=== PATIENT | female | born 1965 | race Caucasian/White ===

== ENCOUNTER → 2023-11-03 | Outpatient (CLI) | payer OTHER ==
--- NOTE | 2023-11-03 14:56 | US ---
EXAMINATION TYPE: US transvaginal DATE OF EXAM: 11/03/2023 COMPARISON: NONE CLINICAL INDICATION: Female, 58 years old with history of N92.6 IRREGULAR MENSTRUATION, UNSPECIFIED; Irregular menses. Hx Csection. TECHNIQUE: Transvaginal (TV). Date of LMP: 09/28/2023, EXAM MEASUREMENTS: Uterus: 9.1 x 5.3 x 5.2 cm Endometrial Stripe: 1.8 cm Right Ovary: 2.9 x 2.2 x 2.1 cm Left Ovary: 3.2 x2.4 x 2.2 cm 1. Uterus: Anteverted Heterogenous in appearance 2. Endometrium: Difficult to accurately visualized. Appears thickened and heterogenous. Possible echogenic heterogenous lesion = 1.4 x 1.4 cm. 3. Right Ovary: hypoechoic lesion - 2.0 x 1.8 x 1.8 cm. 4. Left Ovary: hypoechoic lesion = 2.0 x 2.0 x 2.1 cm 5. Bilateral Adnexa: wnl 6. Posterior cul-de-sac: no free fluid IMPRESSION: Endometrium poorly visualized. Possible lesion identified within the endometrium. Consider further ev aluation with direct visualization or MRI pelvis with IV contrast.
== END | disposition home or self-care (01) ==
LOC: RADUSWWP 12:57
PROVIDERS: ATTEND Family Medicine
DX: N92.6 Irregular menstruation, unspecified (principal)
CPT/HCPCS: 76830

== ENCOUNTER → 2023-11-26 | Outpatient (CLI) | payer OTHER ==
--- NOTE | 2023-11-26 17:20 | MR ---
EXAMINATION TYPE: MR pelvis wo/w con DATE OF EXAM: 11/26/2023 8:31 AM CLINICAL INDICATION:Female, 58 years old with history of N85.8 INFLAMMM DISORDER UTERUS; PHH, Heavy b leeding, Abn U/S, Evaluate uterine mass, thickening uterine lining COMPARISON: Ultrasound 11/03/2023. TECHNIQUE: Triplane multisequence imaging was performed of the pelvis. IV Contrast: 7 cc Gadobutrol FINDINGS: Reproductive: Vagina: High T2 signal cyst near the left posterior aspect of the vagina is a introitus. Uterus: The uterus is anteverted in position. Uterus measures 10.5 x 6.1 x 7.1 cm. The endometrium an d junctional zone is thickened with multiple high T2 foci demonstrated. Junctional zone measuring up to 22 mm posteriorly. Masslike area seen on T2-weighted imaging in the anterior fundus on series 411 image 17 measuring 36 x 29 mm. Multiple nabothian cysts are seen in the lower uterine segment. Endometrium is within normal limits for thickness. Ovaries: The left ovary measures 2.6 x 3.7 x 2.9 cm with multiple high T2 signal cysts. Additionally there is a high T1 signal cyst measuring 19 x 15 mm more superiorly. The right ovary measures 28 x 21 x 28 mm with multiple high T2 signal cyst. There is at least one int rinsic high T1 signal cysts measuring 7 mm with adjacent dark spots and T2-weighted imaging series 90 1 image 16. Bladder: Unremarkable. Bowel: Unremarkable as visualized. Peritoneum: A small amount of free fluid in the pelvis. Lymph nodes: No evidence of adenopathy. Vasculature: Unremarkable. Musculoskeletal: Bone marrow signal is within normal signal intensity. Abdominal wall/soft tissues: Unremarkable. IMPRESSION: 1. Masslike area seen on T2 weighted imaging only in the anterior junction zone possibly representin g focal adenomyomatosis on a background of diffuse adenomyosis. 2. Right ovarian T2 dark spot sign suggesting small endometrioma. Additional hemorrhagic/proteinaceo us cyst in the left ovary. 3. Left bartholin gland cyst
== END | disposition home or self-care (01) ==
LOC: RADMRIMAIN 07:25
PROVIDERS: ATTEND Family Medicine
DX: N75.0 Cyst of Bartholin's gland (principal); N83.292 Other ovarian cyst, left side; N85.8 Other specified noninflammatory disorders of uterus; N93.9 Abnormal uterine and vaginal bleeding, unspecified; N85.00 Endometrial hyperplasia, unspecified
CPT/HCPCS: 72197; A9585